=== PATIENT | male | born 1955 | race Two or more races ===

== ENCOUNTER 2017-11-12 20:02 | Inpatient (IN) | payer SELFPAY ==
[~2017-11-12] VITALS: Ht 165.1 cm; Wt 82.6 kg
[2017-11-12] MEDS ORDERED: PANT40TA4 PO (20:26)
[2017-11-12] MEDS ORDERED: IBUP-2030 PO (20:26)
[2017-11-12] MEDS ORDERED: SPIR25TA6 PO (20:26)
[2017-11-12] MEDS ORDERED: ASPI-1158 PO (20:26)
[2017-11-12] MEDS ORDERED: CLIN300C11 PO (20:26)
[2017-11-12] MEDS ORDERED: FURO20TA4 PO (20:31)
[2017-11-12] MEDS ORDERED: CARV3.1242 PO (20:31)
[2017-11-12] MEDS ORDERED: AMOX500T2 PO (20:31)
[2017-11-12 20:33] LABS: HEMATOCRIT. 34.5 % (42.0-52.0); HEMOGLOBIN. 11.5 g/dL (14.0-18.0); MEAN CORPUSCULAR HEMOGLOBIN 27.8 pg (28.0-32.0); MEAN CORPUSCULAR VOLUME 83.3 fL (80.0-94.0); MEAN PLATELET VOLUME 8.7 fl (7.4-10.4); PLATELET 211 x1000/uL (130-400); RED BLOOD CELL COUNT 4.15 mill/uL (4.7-6.1); RED CELL DISTRIBUTION WIDTH 16.3 % (11.6-14.6)
[2017-11-12 20:36] LABS: CHLORIDE 89 mEq/L (98-107); INR 1.3; PROTHROMBIN TIME 13.2 sec (9.4-11.6)
[2017-11-12] MEDS ORDERED: ACETAMINOPHEN 325MG TABLET PO STA (20:50)
[2017-11-12 20:52] LABS: PLATELET ESTIMATE NORMAL
[2017-11-12] MEDS ORDERED: ALBUTEROL (0.083%) 2.5MG/3ML NEB HHN ONE (21:00)
[2017-11-12 21:03] LABS: BG BASE EXCESS -1.6 mmol/L (-2.0-2.0); BG BILEVEL POS AIRWAY PRESSURE 15/5; BG CARBOXYHEMOGLOBIN 0.2 % (0.5-1.5); BG DEOXYHEMOGLOBIN 0.6 % (0.0-5.0); BG FRACTION INSPIRED OXYGEN 50; BG HCO3 ACT 20.7 mmol/L (22.0-26.0); BG METHEMOGLOBIN 0.2 % (0.0-1.5); BG OXYGEN SATURATION 99.4 % (92.0-98.5); BG PCO2 28.2 mmHg (35.0-45.0); BG PH 7.484 (7.350-7.450); BG PO2 221.2 mmHg (75.0-100.0); BG SAMPLE SITE RIGHT BRACHIAL; BG TOTAL HEMOGLOBIN 12.5 g/dL (12.0-18.0); BG VENT MODE MASK - BIPAP; BG VENT RATE 16 set
[2017-11-12] MEDS ORDERED: VANCOMYCIN 1 G PREMIX 200 ML IV ONE (22:15)
[2017-11-12] MEDS ORDERED: PIPERACILLIN/TAZ 3.375G PREMIX 50 ML IV ONE (22:15)
[2017-11-12] MEDS ORDERED: GUAIFENESIN 200MG/10ML SUGAR FREE UDC PO PRN (23:15)
[2017-11-12] MEDS ORDERED: LORAZEPAM 0.5MG TABLET PO PRN (23:15)
[2017-11-12] MEDS ORDERED: ZOLPIDEM TARTRATE 5MG TABLET PO PRN (23:15)
[2017-11-12] MEDS ORDERED: MAGNESIUM/ALUMINUM HYDROXIDE/SIMETHICONE 30ML UDC PO PRN (23:15)
[2017-11-12] MEDS ORDERED: ONDANSETRON HCL 4MG/2ML VIAL IV PRN (23:15)
[2017-11-12] MEDS ORDERED: CLONIDINE 0.1MG TABLET PO PRN (23:15)
[2017-11-12] MEDS ORDERED: IPRATROPIUM/ALBUTEROL 0.5-3(2.5)MG/3ML NEB INH PRN (23:15)
[2017-11-12] MEDS ORDERED: DIPHENHYDRAMINE 50MG/ML VIAL IV PRN (23:15)
[2017-11-12] MEDS ORDERED: NA PHOS,M-B/NA PHOS,DI-BA ENEMA 118ML PR PRN (23:15)
[2017-11-12] MEDS ORDERED: NITROGLYCERIN 0.4MG TABLET SL SL PRN (23:15)
[2017-11-12] MEDS ORDERED: DOCUSATE SODIUM 100MG CAPSULE PO PRN (23:15)
[2017-11-13] VITALS (13 sets, daily range): BP systolic 99–132; BP diastolic 58–79
[2017-11-13] MEDS: PIPERACILLIN/TAZ 3.375G PREMIX 50 ML IV SCH ×3 (06:00→23:27)
[2017-11-13] MEDS: CARVEDILOL 3.125 MG TABLET PO SCH ×2 (06:00→18:00)
[2017-11-13 06:18] LABS: CREATINE KINASE 75 IU/L (39-308)
[2017-11-13 06:20] LABS: CREATINE KINASE MB FRACTION < 0.5 ng/mL (0.5-3.6)
[2017-11-13 07:14] LABS: CANNABINOID URINE SCREEN NEGATIVE (NEGATIVE); OPIATES URINE SCREEN NEGATIVE (NEGATIVE); PHENCYCLIDINE URINE SCREEN NEGATIVE (NEGATIVE)
[2017-11-13 07:15] LABS: *AMPHETAMINES SCREEN URINE NEGATIVE (NEGATIVE); *BARBITURATES SCREEN URINE NEGATIVE (NEGATIVE); *BENZODIAZEPINES SCREEN URINE NEGATIVE (NEGATIVE); *COCAINE SCREEN URINE NEGATIVE (NEGATIVE); METHADONE URINE SCREEN NEGATIVE (NEGATIVE)
[2017-11-13] MEDS ORDERED: DEXTROSE 50% WATER 50ML SYRINGE IV PRN (08:45)
[2017-11-13] MEDS: GUAIFENESIN/DM 600MG/30MG ER TAB 12HR PO SCH ×2 (10:25→22:01)
[2017-11-13] MEDS: FUROSEMIDE 40MG/4ML VIAL IVP SCH ×2 (10:25→22:01)
[2017-11-13] MEDS: ENOXAPARIN 40MG/0.4ML SYR SUBCUT SCH (10:25)
[2017-11-13] MEDS: ASPIRIN 325MG EC TABLET PO SCH (10:26)
[2017-11-13] MEDS: FAMOTIDINE 20MG TABLET PO SCH ×2 (10:26→22:00)
[2017-11-13] MEDS: SPIRONOLACTONE 25MG TABLET PO SCH ×2 (10:26→22:01)
[2017-11-13] MEDS: LISINOPRIL 20MG TABLET PO SCH ×2 (10:26→21:00)
[2017-11-13] MEDS: INSULIN LISPRO 100 UNITS/ML SUBCUT SCH ×3 (13:24→22:03)
[2017-11-13] MEDS: INSULIN GLARGINE UD 100 UNITS/ML SYR SUBCUT SCH (13:25)
[2017-11-13] MEDS: BLOOD SUGAR DIAGNOSTIC STRIP TEST SCH ×3 (13:25→21:00)
[2017-11-13] MEDS: VANCOMYCIN 1 G PREMIX 200 ML IV SCH (13:25)
[2017-11-13 15:19] LABS: CREATINE KINASE 84 IU/L (39-308)
[2017-11-13 15:20] LABS: CREATINE KINASE MB FRACTION 0.6 ng/mL (0.5-3.6)
[2017-11-13] MEDS: ACETAMINOPHEN 325MG TABLET PO PRN (18:15)
[2017-11-14] VITALS (7 sets, daily range): BP systolic 100–112; BP diastolic 62–80
[2017-11-14] MEDS: PIPERACILLIN/TAZ 3.375G PREMIX 50 ML IV SCH ×3 (05:32→21:51)
[2017-11-14] MEDS: CARVEDILOL 3.125 MG TABLET PO SCH ×2 (06:00→18:00)
[2017-11-14 06:18] LABS: BASOPHILS % 0.5 % (0.0-2.0); EOSINOPHILS % 2.2 % (0.0-5.0); HEMOGLOBIN. 11.3 g/dL (14.0-18.0); LYMPHOCYTES % 15.8 % (20.0-50.0); MEAN CORPUSCULAR HEMOGLOBIN 27.4 pg (28.0-32.0); MEAN CORPUSCULAR VOLUME 82.6 fL (80.0-94.0); MEAN PLATELET VOLUME 9.1 fl (7.4-10.4); MONOCYTES % 11.6 % (2.0-8.0); NEUTROPHILS % 69.9 % (40.0-76.0); PLATELET 172 x1000/uL (130-400); RED BLOOD CELL COUNT 4.12 mill/uL (4.7-6.1); RED CELL DISTRIBUTION WIDTH 15.9 % (11.6-14.6)
[2017-11-14] MEDS: VANCOMYCIN 1 G PREMIX 200 ML IV SCH ×2 (06:49→23:42)
[2017-11-14] MEDS: BLOOD SUGAR DIAGNOSTIC STRIP TEST SCH ×4 (07:30→21:52)
[2017-11-14] MEDS: INSULIN LISPRO 100 UNITS/ML SUBCUT SCH ×4 (08:00→21:52)
[2017-11-14 08:03] LABS: CHLORIDE 94 mEq/L (98-107)
[2017-11-14 08:54] LABS: CLARITY URINE CLEAR (CLEAR); COLOR URINE YELLOW (YELLOW); KETONES URINE NEGATIVE (NEGATIVE); LEUKOCYTE ESTERASE URINE NEGATIVE (NEGATIVE); NITRITE URINE NEGATIVE (NEGATIVE); OCCULT BLOOD URINE 1+ (NEGATIVE); PROTEIN URINE 2+ (NEGATIVE); SPECIFIC GRAVITY URINE 1.015 (1.005-1.030); UROBILINOGEN URINE 0.2 E.U./dL (0.2-1.0)
[2017-11-14] MEDS: FAMOTIDINE 20MG TABLET PO SCH ×2 (09:47→21:51)
[2017-11-14] MEDS: ASPIRIN 325MG EC TABLET PO SCH (09:47)
[2017-11-14] MEDS: FUROSEMIDE 40MG/4ML VIAL IVP SCH ×2 (09:47→21:50)
[2017-11-14] MEDS: GUAIFENESIN/DM 600MG/30MG ER TAB 12HR PO SCH ×2 (09:47→21:50)
[2017-11-14] MEDS: SPIRONOLACTONE 25MG TABLET PO SCH ×2 (09:48→21:50)
[2017-11-14] MEDS: ENOXAPARIN 40MG/0.4ML SYR SUBCUT SCH (09:48)
[2017-11-14] MEDS: LISINOPRIL 20MG TABLET PO SCH ×2 (09:49→21:51)
[2017-11-14] MEDS: INSULIN GLARGINE UD 100 UNITS/ML SYR SUBCUT SCH (09:49)
[2017-11-14] MEDS ORDERED: TETANUS, DIPHTHERIA, PERTUSSIS VAC/PF 0.5ML (>7YR OLD) IM ONE (15:00)
[2017-11-14] MEDS: IPRATROPIUM/ALBUTEROL 0.5-3(2.5)MG/3ML NEB HHN SCH ×2 (16:00→20:09)
[2017-11-14] MEDS: KETOROLAC 15MG/ML VIAL IV PRN (23:42)
[2017-11-15] VITALS (8 sets, daily range): BP systolic 93–130; BP diastolic 54–83
[2017-11-15] MEDS: IPRATROPIUM/ALBUTEROL 0.5-3(2.5)MG/3ML NEB HHN SCH ×5 (00:16→20:05)
[2017-11-15] MEDS: PIPERACILLIN/TAZ 3.375G PREMIX 50 ML IV SCH ×3 (06:00→21:50)
[2017-11-15] MEDS: CARVEDILOL 3.125 MG TABLET PO SCH ×2 (06:00→18:20)
[2017-11-15] MEDS: BLOOD SUGAR DIAGNOSTIC STRIP TEST SCH ×4 (07:30→21:00)
[2017-11-15] MEDS: LISINOPRIL 20MG TABLET PO SCH ×2 (11:24→21:12)
[2017-11-15] MEDS: ASPIRIN 325MG EC TABLET PO SCH (11:24)
[2017-11-15] MEDS: GUAIFENESIN/DM 600MG/30MG ER TAB 12HR PO SCH ×2 (11:24→21:12)
[2017-11-15] MEDS: FAMOTIDINE 20MG TABLET PO SCH ×2 (11:25→21:12)
[2017-11-15] MEDS: FUROSEMIDE 40MG/4ML VIAL IVP SCH ×2 (11:25→21:11)
[2017-11-15] MEDS: SPIRONOLACTONE 25MG TABLET PO SCH ×2 (11:26→21:12)
[2017-11-15] MEDS: ENOXAPARIN 40MG/0.4ML SYR SUBCUT SCH (11:26)
[2017-11-15] MEDS: INSULIN GLARGINE UD 100 UNITS/ML SYR SUBCUT SCH (11:34)
[2017-11-15] MEDS: INSULIN LISPRO 100 UNITS/ML SUBCUT SCH ×4 (11:35→21:47)
[2017-11-15] MEDS: VANCOMYCIN 1 G PREMIX 200 ML IV SCH ×2 (18:18→23:29)
[2017-11-15] MEDS: KETOROLAC 15MG/ML VIAL IV PRN (19:46)
[2017-11-16] VITALS: BP 95/45
[2017-11-16] MEDS: IPRATROPIUM/ALBUTEROL 0.5-3(2.5)MG/3ML NEB HHN SCH ×6 (00:09→21:39)
[2017-11-16 04:00] VITALS: BP 97/55
[2017-11-16] MEDS: CARVEDILOL 3.125 MG TABLET PO SCH ×2 (05:38→16:43)
[2017-11-16] MEDS: PIPERACILLIN/TAZ 3.375G PREMIX 50 ML IV SCH ×3 (05:38→21:11)
[2017-11-16] MEDS: BLOOD SUGAR DIAGNOSTIC STRIP TEST SCH ×4 (07:30→21:14)
[2017-11-16 07:49] LABS: CHLORIDE 98 mEq/L (98-107)
[2017-11-16 08:00] VITALS: BP 114/62
[2017-11-16] MEDS: INSULIN LISPRO 100 UNITS/ML SUBCUT SCH ×4 (08:00→21:30)
[2017-11-16] MEDS: LISINOPRIL 20MG TABLET PO SCH ×2 (09:00→21:00)
[2017-11-16] MEDS: FAMOTIDINE 20MG TABLET PO SCH ×2 (10:47→21:11)
[2017-11-16] MEDS: FUROSEMIDE 40MG/4ML VIAL IVP SCH ×2 (10:48→21:11)
[2017-11-16] MEDS: ASPIRIN 325MG EC TABLET PO SCH (10:48)
[2017-11-16] MEDS: GUAIFENESIN/DM 600MG/30MG ER TAB 12HR PO SCH ×2 (10:48→21:11)
[2017-11-16] MEDS: SPIRONOLACTONE 25MG TABLET PO SCH ×2 (10:48→22:56)
[2017-11-16] MEDS: ENOXAPARIN 40MG/0.4ML SYR SUBCUT SCH (10:50)
[2017-11-16] MEDS: VANCOMYCIN 1 G PREMIX 200 ML IV SCH ×2 (11:37→22:55)
[2017-11-16] MEDS: INSULIN GLARGINE UD 100 UNITS/ML SYR SUBCUT SCH (11:43)
[2017-11-16 12:00] VITALS: BP 109/58
[2017-11-16 20:00] VITALS: BP 108/67
[2017-11-16] MEDS: ACETAMINOPHEN 325MG TABLET PO PRN (22:56)
[2017-11-17] VITALS: BP 124/58
[2017-11-17] MEDS: IPRATROPIUM/ALBUTEROL 0.5-3(2.5)MG/3ML NEB HHN SCH ×3 (00:48→07:18)
[2017-11-17 04:00] VITALS: BP 112/69
[2017-11-17] MEDS: PIPERACILLIN/TAZ 3.375G PREMIX 50 ML IV SCH ×2 (05:55→13:32)
[2017-11-17] MEDS: CARVEDILOL 3.125 MG TABLET PO SCH (05:55)
[2017-11-17] MEDS: BLOOD SUGAR DIAGNOSTIC STRIP TEST SCH ×2 (06:08→11:45)
[2017-11-17] MEDS: INSULIN LISPRO 100 UNITS/ML SUBCUT SCH ×2 (06:08→13:39)
[2017-11-17 06:26] LABS: BASOPHILS % 0.5 % (0.0-2.0); EOSINOPHILS % 3.5 % (0.0-5.0); HEMATOCRIT. 35.1 % (42.0-52.0); HEMOGLOBIN. 11.6 g/dL (14.0-18.0); LYMPHOCYTES % 22.5 % (20.0-50.0); MEAN CORPUSCULAR HEMOGLOBIN 27.5 pg (28.0-32.0); MEAN CORPUSCULAR VOLUME 83.5 fL (80.0-94.0); MEAN PLATELET VOLUME 8.3 fl (7.4-10.4); MONOCYTES % 8.5 % (2.0-8.0); PLATELET 228 x1000/uL (130-400); RED CELL DISTRIBUTION WIDTH 16.1 % (11.6-14.6)
[2017-11-17 06:48] LABS: CHLORIDE 98 mEq/L (98-107)
[2017-11-17 08:00] VITALS: BP 116/65
[2017-11-17] MEDS: FAMOTIDINE 20MG TABLET PO SCH (09:35)
[2017-11-17] MEDS: GUAIFENESIN/DM 600MG/30MG ER TAB 12HR PO SCH (09:35)
[2017-11-17] MEDS: VANCOMYCIN 1 G PREMIX 200 ML IV SCH (09:36)
[2017-11-17] MEDS: ASPIRIN 325MG EC TABLET PO SCH (09:36)
[2017-11-17] MEDS: SPIRONOLACTONE 25MG TABLET PO SCH (09:37)
[2017-11-17] MEDS: FUROSEMIDE 40MG/4ML VIAL IVP SCH (09:38)
[2017-11-17] MEDS: ENOXAPARIN 40MG/0.4ML SYR SUBCUT SCH (09:38)
[2017-11-17] MEDS: LISINOPRIL 20MG TABLET PO SCH (09:39)
[2017-11-17] MEDS: INSULIN GLARGINE UD 100 UNITS/ML SYR SUBCUT SCH (10:23)
[2017-11-17 12:00] VITALS: BP 119/77
[2017-11-18] MEDS ORDERED: VANCOMYCIN 1250MG in DEXTROSE 5% WATER 250ML IV SCH (06:00)
== END 2017-11-17 14:48 | disposition left against medical advice (07) | DRG 720 ==
LOC: ER 20:02 → 5EST 22:57 → EDBEDREQ 22:58 → EDBEDREQSVC 22:58 → EDBEDREQTM 22:58 → ENRESERV 23:23 → 5WST 11-16 15:25
PROVIDERS: ADMIT Internal Medicine; ATTEND Internal Medicine
PROC: 5A09357 Assistance with Respiratory Ventilation, Less than 24 Consecutive Hours, Continuous Positive Airway Pressure (ICD-10-PCS; 2017-11-12)
PROC: 0JBR0ZZ Excision of Left Foot Subcutaneous Tissue and Fascia, Open Approach (ICD-10-PCS; principal; 2017-11-15)
DX: A40.8 Other streptococcal sepsis (principal); J96.00 Acute respiratory failure, unspecified whether with hypoxia or hypercapnia; E87.2 Acidosis; E44.0 Moderate protein-calorie malnutrition; N17.9 Acute kidney failure, unspecified; I11.0 Hypertensive heart disease with heart failure; E87.1 Hypo-osmolality and hyponatremia; E11.65 Type 2 diabetes mellitus with hyperglycemia; J44.1 Chronic obstructive pulmonary disease with (acute) exacerbation; E87.5 Hyperkalemia; F10.10 Alcohol abuse, uncomplicated; Y90.9 Presence of alcohol in blood, level not specified; I50.9 Heart failure, unspecified; E11.42 Type 2 diabetes mellitus with diabetic polyneuropathy; E11.52 Type 2 diabetes mellitus with diabetic peripheral angiopathy with gangrene; E11.621 Type 2 diabetes mellitus with foot ulcer; L97.429 Non-pressure chronic ulcer of left heel and midfoot with unspecified severity; E78.5 Hyperlipidemia, unspecified; I25.10 Atherosclerotic heart disease of native coronary artery without angina pectoris; Z95.5 Presence of coronary angioplasty implant and graft; Z89.421 Acquired absence of other right toe(s); Z83.3 Family history of diabetes mellitus; Z82.49 Family history of ischemic heart disease and other diseases of the circulatory system; Z79.899 Other long term (current) drug therapy; Z79.82 Long term (current) use of aspirin; Z68.30 Body mass index [BMI] 30.0-30.9, adult
CPT/HCPCS: 36415; 36600; 71045; 73630; 73721; 80048; 80053; 80061; 80202; 80305; 81003; 82375; 82550; 82553; 82805; 82962; 83036; 83605; 83880; 84484; 85025; 85610; 85651; 86140; 87040; 87077; 87086; 87186; 90715; 93005; 93306; 93923; 93970; 94660; 96365; 96368; 99291; J1650; J1815; J1885; J1940; J2543; J3370; J7040; J7060; J7620